=== PATIENT | male | born 1995 | race Hispanic/Latino ===

== ENCOUNTER 2017-05-01 12:05 | Inpatient (IN) | payer OTHER ==
[~2017-05-01] VITALS: Ht 165.1 cm; Wt 61.4 kg
[2017-05-01 14:47] LABS: ALBUMIN 4.5 GM/DL (3.2-5.2); ALKALINE PHOSPHATASE 93 U/L (45-117); ALT/SGPT 29 U/L (12-78); ANION GAP 5 MEQ/L (8-16); AST/SGOT 23 U/L (7-37); BILIRUBIN,DIRECT 0.2 MG/DL (0.0-0.2); BLOOD UREA NITROGEN 12 MG/DL (7-18); CALCIUM LEVEL 9.5 MG/DL (8.5-10.1); CARBON DIOXIDE LEVEL 31 MEQ/L (21-32); CHLORIDE LEVEL 103 MEQ/L (98-107); GLUCOSE, FASTING 119 MG/DL (70-105); POTASSIUM SERUM 4.3 MEQ/L (3.5-5.1); SODIUM LEVEL 139 MEQ/L (136-145); TOTAL PROTEIN 7.5 GM/DL (6.4-8.2)
[2017-05-01 14:51] LABS: MEAN CORPUSCULAR HGB CONC 35.1 g/dl (32.0-36.5); MEAN CORPUSCULAR VOLUME 91.3 fl (80.0-96.0); PLATELET COUNT, AUTOMATED 181 10^3/uL (150-450); RED CELL DISTRIBUTION WIDTH 11.9 % (11.5-14.5); WHITE BLOOD COUNT 10.3 10^3/uL (4.0-10.0)
[2017-05-01 14:58] LABS: METHADONE URINE NEGATIVE (NEGATIVE)
[2017-05-01] MEDS ORDERED: MAALOX 30 ML SUSP *UDC PO PRN (15:45)
[2017-05-01] MEDS ORDERED: NICOTINE 21MG/24HR 1 EA TRANSDERMAL TD ONE ×2 (15:45→16:00)
[2017-05-01] MEDS ORDERED: ACETAMINOPHEN TAB 650MG DOSE (2X325MG) PO PRN (15:45)
[2017-05-01] MEDS ORDERED: MOM 30ML SUSPENSION UDC PO PRN (15:45)
[2017-05-01] MEDS ORDERED: IBUPOTC PO (16:21)
[2017-05-01 17:55] VITALS: BP 131/79
[2017-05-01] MEDS ORDERED: diphenhydrAMINE 50 MG CAP PO PRN (18:45)
[2017-05-01] MEDS: traZODone 50 MG TAB PO PRN (20:55)
[2017-05-02 07:09] VITALS: BP 110/59
[2017-05-02] MEDS: NICOTINE 21MG/24HR 1 EA TRANSDERMAL TD SCH (08:19)
[2017-05-02] MEDS ORDERED: IBUPROFEN 400 MG TAB PO PRN (09:30)
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
[2017-05-02] MEDS: CitaloPRAM (CeleXA) 10 MG TABLET PO SCH (11:07)
--- NOTE | 2017-05-02 11:15 | REP ---
Clinical: Bilateral knee pain Technique: AP, lateral, bilateral oblique and sunrise views right and left knee . Findings: The osseous structures and joint spaces are intact and normal. There is no evidence for acute fracture or dislocation. No joint effusion is appreciated. Surrounding soft tissues are unremarkable. No subcutaneous emphysema or radiodense foreign body. Impression: Normal bilateral examination. No acute fracture or dislocation. No significant degenerative changes. Signed by Wilmer Guzmán MD 05/02/2017 11:07 A
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
--- NOTE | 2017-05-02 13:46 | ECGEPIP ---
Stationary ECG Study [facility] - ED Test Date: 2017-05-01 Pat Name: RITA FRYE Department: Room: - Gender: M Maintenance Mechanic Technician: EMILY : 1995 Requested By: SANTOS Argueta Order Number: [id number] Reading MD: Duong Mary Measurements Intervals [place] Rate: 68 P: 69 SC: 150 QRS: 97 QRSD: 90 T: 71 QT: 370 QTc: 396 Interpretive Statements SINUS RHYTHM WITH SINUS ARRHYTHMIA RIGHT AXIS DEVIATION NO PRIORS FOR COMPARISON Electronically Signed On 05-02-2017 13:45:54 EST by Duong Mary
[2017-05-02 18:00] VITALS: BP 133/87
[2017-05-02] MEDS: traZODone 50 MG TAB PO PRN (20:15)
[2017-05-03 07:00] VITALS: BP 99/56
[2017-05-03] MEDS: NICOTINE 21MG/24HR 1 EA TRANSDERMAL TD SCH (08:18)
[2017-05-03] MEDS: CitaloPRAM (CeleXA) 10 MG TABLET PO SCH (08:18)
[2017-05-03] MEDS ORDERED: INFLUENZA QUADRIVALENT PF VACCINE 0.5ML SYRINGE (90686) IM ONE (09:00)
--- NOTE | 2017-05-03 14:17 | ECGEPIP ---
Stationary ECG Study [facility] Test Date: 2017-05-02 Pat Name: RITA FRYE Department: Room: [place] [address] Gender: M Optimization Engineer: PEDRITO : 1995 Requested By: Cammie David Order Number: [id number] Reading MD: Rayo May Measurements Intervals Minter Rate: 72 P: 39 CA: 159 QRS: 92 QRSD: 101 T: 63 QT: 353 QTc: 389 Interpretive Statements SINUS RHYTHM BORDERLINE RIGHT AXIS DEVIATION POSSIBLE RIGHT VENTRICULAR CONDUCTION DELAY Prior tracing on 05/01/2017 at 15:07:05, no significant changes Electronically Signed On 05-03-2017 14:17:14 EST by Rayo May
--- NOTE | 2017-05-03 15:50 | MHIPN ---
DATE: 05/03/2017 HISTORY: A 21-year-old male, active-duty soldier, admitted for depression and suicidal ideation. MEDICATIONS: - Celexa 10 mg by mouth every morning - trazodone 50 mg by mouth at bedtime as needed for insomnia SUBJECTIVE: "I'm feeing about the same." OBJECTIVE: No major changes from yesterday at admission. Patient continues to be depressed with psychomotor retardation, low, monotone speech, and minimal interactions. MENTAL STATUS EXAMINATION: Patient dressed in [facility]. Patient is cooperative. Has fair eye contact. Speech is slow and monotone. Mood is depressed and anxious. Affect is restricted. Patient denies auditory or visual hallucinations. No evidence of delusions. Memory is intact. Patient is fully oriented. Associations are intact. Thinking is logical. Thought content is appropriate. Patient is able to contract for safety while in the hospital. Insight and judgment are fair. ASSESSMENT: 1. Depression. 2. Suicidal ideation. PLAN: 1. Increase Celexa to 20 mg by mouth every morning. 2. Trazodone 50 mg by mouth at bedtime. 3. Continue medication management, individual and group therapy.
[2017-05-03 18:00] VITALS: BP 134/85
[2017-05-03] MEDS: traZODone 50 MG TAB PO PRN (20:29)
[2017-05-04 06:43] VITALS: BP 101/58
[2017-05-04] MEDS: NICOTINE 21MG/24HR 1 EA TRANSDERMAL TD SCH (08:20)
[2017-05-04] MEDS: CitaloPRAM (CeleXA) 20 MG TAB PO SCH (08:20)
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
[2017-05-04 18:00] VITALS: BP 143/83
[2017-05-04] MEDS: traZODone 50 MG TAB PO PRN (21:22)
[2017-05-05 06:00] VITALS: BP 104/56
[2017-05-05] MEDS: CitaloPRAM (CeleXA) 20 MG TAB PO SCH (08:24)
[2017-05-05] MEDS: NICOTINE 21MG/24HR 1 EA TRANSDERMAL TD SCH (08:54)
--- NOTE | 2017-05-05 14:56 | MHIPNPDOC ---
[facility] Progress Note Progress Note DATE OF SERVICE: 05/05/17 HISTORY: A 21-year-old male, active-duty soldier, admitted for depression and suicidal ideation. Today, 05/05/2017, Gabriel reported anxiety when he thinks about the possible consequences of having smoked marijuana recently. He thinks that his gonna be chaptered and he feels anxious about it. He has shared very little information about this incident with family because he doesn't want to worry them, especially his mother. He says that while being here at the inpatient mental health unit, he gets distracted and he talks to other patients and that helps him to keep his mind away from his problem. VITAL SIGNS: See below. NEW TEST RESULTS: N/A CURRENT MEDICATIONS: See below. MENTAL STATUS EXAMINATION: Patient is a 21-year old male, pleasant, cooperative, dressed in hospital clothes, with good eye contact, fair hygiene and grooming. Speech: Normal in tone, rate and volume. Coherent Language skills are Fair. Thought processes including: Intact. Thought content: Anxious thoughts about the possibility of being chaptered. Abstract reasoning, and computation: Not assessed at this time Description of associations: Good Description of abnormal or psychotic thoughts: Denies a/V hallucinations, denies thought delusions, denies homicidal ideation and denies suicidal ideation. Judgment: Limited Insight: limited Orientation: Oriented x 3. Recent and remote memory: Intact Attention span and concentration: Good Language: Adequate Fund of knowledge: Limited Mood: Euthymic Affect: Euthymic, congruent with mood, reactive, appropriate DIAGNOSES: 1. Major Depressive Disorder, recurrent 2. Anxiety disorder ASSESSMENT: Patient reports feeling anxious about being chaptered, he also reports feeling anxious because he wouldn't like his family to know that he was using marijuana, he voices feelings of guilt and shame for having used this drug but he says he used it because he already was feeling very stressed out. Patient has brighter mood and affect, smiled frequently during day interview. MANAGEMENT PLAN: Will continue on the same treatment plan TIME SPENT: 20 minutes. Vital Signs Vital Signs Date Time Temp Pulse Resp B/P (MAP) Pulse Ox O2 Delivery O2 Flow Rate FiO2 05/05/17 06:00 98.0 86 14 104/56 (72) 05/04/17 06:43 Room Air 05/01/17 17:02 99 Current Medications Current Medications Acetaminophen (Tylenol Tab) 650 mg Q6HP PRN PO HEADACHE or DISCOMFORT; Start 05/01/17 at 15:45; Stop 05/31/17 at 15:44 Al Hydrox/Mg Hydrox/Simethicone (Mylanta) 30 ml Q4HP PRN PO HEARTBURN/ INDIGESTION; Start 05/01/17 at 15:45; Stop 05/31/17 at 15:44 Citalopram Hydrobromide (CeleXA) 10 mg QAM PO Last administered on 05/03/17 08:18; Start 05/02/17 at 09:00; Stop 05/03/17 at 12:06; Status DC Citalopram Hydrobromide (CeleXA) 20 mg QAM PO Last administered on 05/05/17 08:24; Start 05/04/17 at 09:00; Stop 06/03/17 at 08:59 Diphenhydramine HCl (Benadryl) 50 mg Q6HP PRN PO ANXIEY/AGGITATION; Start at 18:45; Stop 05/31/17 at 18:44 Home Med (Med Rec Complete!) ASDIRECTED XX ; Start 05/01/17 at 16:30; Stop at 16:30; Status DC Ibuprofen (Advil) 400 mg Q6HP PRN PO PAIN Last administered on 05/04/17 12:01 ; Start 05/02/17 at 09:30; Stop 06/01/17 at 09:29; Status Future hold Magnesium Hydroxide (Milk Of Magnesia) 30 ml DAILYPRN PRN PO CONSTIPATION; Start 05/01/17 at 15:45; Stop 05/31/17 at 15:44 Nicotine (Nicoderm Cq 21mg) 1 patch DAILY TD Last administered on 05/04/17 08 :20; Start 05/02/17 at 09:00; Stop 06/01/17 at 08:59 Trazodone HCl (Desyrel) 50 mg QHSP PRN PO INSOMNIA Last administered on 21:22; Start 05/01/17 at 15:45; Stop 05/31/17 at 15:44 Allergies Coded Allergies: Naproxen (Verified Allergy, Severe, ANAPHYLACTIC SHOCK, 05/02/17) States has taken Motrin in past without difficulty. Amoxicillin (Verified Allergy, Unknown, 05/01/17) Clavulanic Acid (Verified Allergy, Unknown, 05/01/17) ALEA ESCALERA MD May 05, 2017 14:56
[2017-05-05 18:00] VITALS: BP 137/77
[2017-05-05] MEDS: traZODone 50 MG TAB PO PRN (20:08)
[2017-05-06 06:00] VITALS: BP 111/56
[2017-05-06] MEDS: NICOTINE 21MG/24HR 1 EA TRANSDERMAL TD SCH (08:00)
[2017-05-06] MEDS: CitaloPRAM (CeleXA) 20 MG TAB PO SCH (08:01)
[2017-05-06] MEDS ORDERED: TRAZO50TA PO (12:29)
[2017-05-06] MEDS ORDERED: CELE20TA PO (12:29)
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
== END 2017-05-06 14:25 | disposition home or self-care (01) | DRG 882 ==
LOC: M ED 12:05 → M ED INP 15:13 → EDBEDREQ 15:55 → M PSY 17:37
PROVIDERS: ADMIT Psychiatry & Neurology Psychiatry; ATTEND Psychiatry & Neurology Psychiatry
DX: F43.23 Adjustment disorder with mixed anxiety and depressed mood (principal); R45.851 Suicidal ideations; F12.10 Cannabis abuse, uncomplicated; F17.200 Nicotine dependence, unspecified, uncomplicated; M25.561 Pain in right knee; M25.562 Pain in left knee; Z88.1 Allergy status to other antibiotic agents; Z88.6 Allergy status to analgesic agent; Z79.899 Other long term (current) drug therapy

== ENCOUNTER 2017-06-29 15:56 | Emergency (ER) | payer OTHER | END 2017-06-29 17:12 | disposition home or self-care (01) | LOC: M ED 15:56 | DX: S90.31XA Contusion of right foot, initial encounter (principal); W20.8XXA Other cause of strike by thrown, projected or falling object, initial encounter; Y99.0 Civilian activity done for income or pay; F33.9 Major depressive disorder, recurrent, unspecified; Z88.0 Allergy status to penicillin; Z88.8 Allergy status to other drugs, medicaments and biological substances | CPT/HCPCS: 73630 ==

== ENCOUNTER 2017-09-25 13:22 | Inpatient (IN) | payer OTHER ==
[2017-09-25 14:59] LABS: HEMATOCRIT 47.3 % (42.0-52.0); HEMOGLOBIN 17.3 g/dl (13.5-17.5); MEAN CORPUSCULAR HEMOGLOBIN 32.6 pg (27.0-33.0); MEAN CORPUSCULAR VOLUME 89.1 fl (80.0-96.0); PLATELET COUNT, AUTOMATED 203 10^3/uL (150-450); RED BLOOD COUNT 5.31 10^6/uL (4.30-6.10); RED CELL DISTRIBUTION WIDTH 11.2 % (11.5-14.5); WHITE BLOOD COUNT 15.6 10^3/uL (4.0-10.0)
[2017-09-25 15:12] LABS: MEAN CORPUSCULAR HGB CONC 36.6 g/dl (32.0-36.5)
[2017-09-25 15:16] LABS: AMPHETAMINES LEVEL URINE NEGATIVE (NEGATIVE); BARBITURATES URINE NEGATIVE (NEGATIVE); BENZODIAZEPINES URINE NEGATIVE (NEGATIVE); CANNABINOIDS URINE POSITIVE (NEGATIVE); COCAINE METABOLITE URINE NEGATIVE (NEGATIVE); METHADONE URINE NEGATIVE (NEGATIVE); OPIATES URINE NEGATIVE (NEGATIVE); PHENCYCLIDINE URINE NEGATIVE (NEGATIVE)
[2017-09-25 15:27] LABS: ALBUMIN 4.9 GM/DL (3.2-5.2); ALBUMIN/GLOBULIN RATIO 1.53 (1.00-1.93); ALKALINE PHOSPHATASE 89 U/L (45-117); ALT/SGPT 27 U/L (12-78); ANION GAP 10 MEQ/L (8-16); AST/SGOT 20 U/L (7-37); BILIRUBIN,DIRECT 0.2 MG/DL (0.0-0.2); BILIRUBIN,TOTAL 0.6 MG/DL (0.2-1.0); BLOOD UREA NITROGEN 17 MG/DL (7-18); CALCIUM LEVEL 9.8 MG/DL (8.5-10.1); CARBON DIOXIDE LEVEL 25 MEQ/L (21-32); CHLORIDE LEVEL 107 MEQ/L (98-107); CREATININE FOR GFR 0.97 MG/DL (0.70-1.30); GLUCOSE, FASTING 95 MG/DL (70-100); POTASSIUM SERUM 3.8 MEQ/L (3.5-5.1); SALICYLATE LEVEL < 1.7 MG/DL (5.0-30.0); SODIUM LEVEL 142 MEQ/L (136-145); THYROID STIMULATING HORMONE 0.659 uIU/ML (0.463-3.98); TOTAL PROTEIN 8.1 GM/DL (6.4-8.2)
[2017-09-25 15:31] LABS: ACETAMINOPHEN LEVEL < 2.0 UG/ML (10.0-30.0); ETHYL ALCOHOL (ETHANOL) < 0.003 % (0.000-0.010)
[2017-09-25] MEDS ORDERED: MOM 30ML SUSPENSION UDC PO (16:15)
[2017-09-25] MEDS ORDERED: ACETAMINOPHEN TAB 650MG DOSE (2X325MG) PO (16:15)
[2017-09-25] MEDS ORDERED: MAALOX 30 ML SUSP *UDC PO (16:15)
[2017-09-26] MEDS ORDERED: DICLOFENAC EPOLAMINE 1.3 % PATCH TOP (09:00)
[2017-09-26] MEDS: ESCITALOPRAM OXALATE 5MG TABLET (LEXAPRO) PO (12:43)
[2017-09-26] MEDS: CYCLOBENZAPRINE 10 MG TAB PO (12:45)
[2017-09-26 13:27] LABS: RHEUMATOID FACTOR QUANT < 10.0 IU/ML (<15.0)
[2017-09-26 13:27] LABS: C REACTIVE PROTEIN QUANTITATIV < 0.30 MG/DL (0.00-0.30)
[2017-09-26 13:34] LABS: ERYTHROCYTE SEDIMENTATION RATE 1 mm/hr (0-15)
[2017-09-26] MEDS: traZODone 50 MG TAB PO (21:06)
[2017-09-27] MEDS: ESCITALOPRAM OXALATE 5MG TABLET (LEXAPRO) PO (08:42)
[2017-09-27] MEDS: LIDOCAINE 5% (LIDODERM) PATCH TD (08:43)
[2017-09-27] MEDS: CYCLOBENZAPRINE 10 MG TAB PO ×2 (08:53→21:06)
[2017-09-27 09:42] LABS: HEMATOCRIT 46.7 % (42.0-52.0); HEMOGLOBIN 16.7 g/dl (13.5-17.5); MEAN CORPUSCULAR HGB CONC 35.8 g/dl (32.0-36.5); MEAN CORPUSCULAR VOLUME 89.5 fl (80.0-96.0); PLATELET COUNT, AUTOMATED 188 10^3/uL (150-450); RED BLOOD COUNT 5.22 10^6/uL (4.30-6.10); RED CELL DISTRIBUTION WIDTH 11.3 % (11.5-14.5); WHITE BLOOD COUNT 9.1 10^3/uL (4.0-10.0)
[2017-09-27] MEDS: **NOTE PATIENT COMMENT** MISC XX (21:00)
[2017-09-27] MEDS: traZODone 50 MG TAB PO (21:06)
[2017-09-28] MEDS: LIDOCAINE 5% (LIDODERM) PATCH TD (08:06)
[2017-09-28] MEDS: ESCITALOPRAM OXALATE 5MG TABLET (LEXAPRO) PO (08:06)
[2017-09-28] MEDS: CYCLOBENZAPRINE 10 MG TAB PO ×2 (08:08→20:17)
[2017-09-28] MEDS: traZODone 50 MG TAB PO (20:17)
[2017-09-28] MEDS: **NOTE PATIENT COMMENT** MISC XX (21:11)
[2017-09-29] MEDS: CYCLOBENZAPRINE 10 MG TAB PO ×2 (08:08→20:17)
[2017-09-29] MEDS: ESCITALOPRAM OXALATE 5MG TABLET (LEXAPRO) PO (08:08)
[2017-09-29] MEDS: LIDOCAINE 5% (LIDODERM) PATCH TD (08:09)
[2017-09-29] MEDS: **NOTE PATIENT COMMENT** MISC XX (20:15)
[2017-09-29] MEDS: traZODone 50 MG TAB PO (20:16)
[2017-09-30] MEDS: LIDOCAINE 5% (LIDODERM) PATCH TD (08:11)
[2017-09-30] MEDS: ESCITALOPRAM OXALATE 5MG TABLET (LEXAPRO) PO (08:11)
[2017-09-30] MEDS: CYCLOBENZAPRINE 10 MG TAB PO (08:11)
== END 2017-09-30 13:30 | disposition home or self-care (01) | DRG 881 ==
LOC: M ED 13:22 → M ED INP 16:14 → M PSY 18:40
DX: F32.9 Major depressive disorder, single episode, unspecified (principal); F12.10 Cannabis abuse, uncomplicated; R45.850 Homicidal ideations; M06.9 Rheumatoid arthritis, unspecified; Z88.1 Allergy status to other antibiotic agents; Z88.6 Allergy status to analgesic agent; F17.200 Nicotine dependence, unspecified, uncomplicated; M54.5 Low back pain; M25.561 Pain in right knee; M25.562 Pain in left knee; Z79.899 Other long term (current) drug therapy